=== PATIENT | female | born 1980 | race African-American/Black ===

== ENCOUNTER 2023-02-25 13:28 | Emergency (ER) | payer SELFPAY ==
[~2023-02-25] VITALS: Ht 160 cm; Wt 64.0 kg
[2023-02-25] MEDS ORDERED: HALOPERIDOL LACTATE 5MG/ML VIAL IM ONE (13:30)
[2023-02-25] MEDS ORDERED: MIDAZOLAM HCL 2 MG/2 ML VIAL IM ONE (13:30)
[2023-02-25] MEDS ORDERED: DIPHENHYDRAMINE 50MG/ML VIAL IM PRN (13:30)
[2023-02-25 15:09] LABS: BASOPHILS % 2.8 % (0.0-2.0); HEMATOCRIT. 34.1 % (36.0-48.0); HEMOGLOBIN. 11.2 g/dL (12.0-16.0); LYMPHOCYTES % 34.2 % (20.0-50.0); MEAN CORPUSCULAR HEMOGLOBIN 31.1 pg (28.0-32.0); MEAN CORPUSCULAR HGB CONC 32.9 g/dL (31.0-37.0); MEAN CORPUSCULAR VOLUME 94.5 fL (81.0-99.0); MEAN PLATELET VOLUME 8.8 fl (7.4-10.4); MONOCYTES % 12.2 % (2.0-8.0); NEUTROPHILS % 45.8 % (40.0-76.0); PLATELET 233 x1000/uL (130-400); RED BLOOD CELL COUNT 3.61 mill/uL (4.2-5.4)
[2023-02-25 15:14] LABS: CHLORIDE 110 mEq/L (98-107); INDEX HEMOLYSI 1 (1-3); INDEX ICTERIC 1 (1-4); INDEX LIPEMIC 1 (1-3); POTASSIUM 3.1 mEq/L (3.5-5.1); SODIUM 140 mEq/L (136-145)
[2023-02-25 15:15] LABS: CLARITY URINE CLEAR (CLEAR); COLOR URINE YELLOW (YELLOW); GLUCOSE URINE NEGATIVE (NEGATIVE); KETONES URINE NEGATIVE (NEGATIVE); LEUKOCYTE ESTERASE URINE NEGATIVE (NEGATIVE); NITRITE URINE NEGATIVE (NEGATIVE); OCCULT BLOOD URINE NEGATIVE (NEGATIVE); PROTEIN URINE 1+ (NEGATIVE)
[2023-02-25 15:24] LABS: HCG SCREEN NEGATIVE
[2023-02-25 15:25] LABS: ALANINE AMINOTRANSFERASE 28 IU/L (13-61); ALBUMIN 2.9 g/dL (3.4-5.0); ASPARTATE AMINOTRANSFERASE 22 IU/L (15-37); BILIRUBIN TOTAL 0.3 mg/dL (0.1-1.0); CALCIUM 7.8 mg/dL (8.5-10.1); CARBON DIOXIDE 27 mEq/L (21-32); CREATININE 0.6 mg/dL (0.6-1.3); ETHANOL BLOOD < 10 mg/dL (<10); GLUCOSE 81 mg/dL (70-105); PROTEIN TOTAL 6.2 g/dL (6.0-8.3); UREA NITROGEN BLOOD 7 mg/dL (7-21)
[2023-02-25 15:31] VITALS: BP 105/68; PULSE 89; RESP 20; O2SAT 100
[2023-02-25 15:45] LABS: *BARBITURATES SCREEN URINE NEGATIVE (NEGATIVE); *COCAINE SCREEN URINE NEGATIVE (NEGATIVE); ECSTASY MDMA SCREEN URINE NEGATIVE (NEGATIVE); METHADONE URINE SCREEN NEGATIVE (NEGATIVE); OPIATES URINE SCREEN NEGATIVE (NEGATIVE); PHENCYCLIDINE URINE SCREEN NEGATIVE (NEGATIVE)
[2023-02-25 15:47] LABS: *AMPHETAMINES SCREEN URINE PRESUMTIVE POSITIVE (NEGATIVE); *BENZODIAZEPINES SCREEN URINE PRESUMTIVE POSITIVE (NEGATIVE)
[2023-02-25 15:48] LABS: CANNABINOID URINE SCREEN PRESUMTIVE POSITIVE (NEGATIVE)
[2023-02-25 15:49] LABS: RBC URINE NONE SEEN /hpf (0-2); SQUAMOUS EPITHELIAL CELL URINE 1+ /lpf (RARE/1+); WBC URINE 0-2 /hpf (0-2)
[2023-02-25 15:50] LABS: BACTERIA URINE TRACE
== END 2023-02-25 23:10 ==
LOC: ER 15:28
DX: R45.1 Restlessness and agitation (principal); F19.10 Other psychoactive substance abuse, uncomplicated
CPT/HCPCS: 80053; 80305; 81003; 80307; 80329; 80320; 84703; 85025; 36415; 71045; 70450; 96372; 99285; J1200; J1630; J2250; G0480